=== PATIENT | male | born 1965 | race African-American/Black ===

== ENCOUNTER 2018-11-17 05:57 | Emergency (ER) | payer BC ==
[~2018-11-17] VITALS: Ht 182.9 cm; Wt 81.7 kg
[2018-11-17] MEDS ORDERED: METHOTREXATE2.5 MG PO ×2 (06:25→08:42)
[2018-11-17] MEDS ORDERED: PLAQUENIL200 MG PO ×2 (06:26→08:42)
[2018-11-17] MEDS ORDERED: FOLIC ACID1 MG PO ×2 (06:26→08:42)
[2018-11-17] MEDS ORDERED: NORCO 7.5-3251 EACH PO (08:42)
[2018-11-17] MEDS ORDERED: PREDNISONE20 MG PO (08:42)
== END 2018-11-17 08:57 | disposition home or self-care (01) ==
LOC: ED 05:57
DX: M06.9 Rheumatoid arthritis, unspecified (principal); F17.200 Nicotine dependence, unspecified, uncomplicated; Z79.899 Other long term (current) drug therapy
CPT/HCPCS: 80053; 85025; 96361; 96374; 96375; 99283-25; J1885; J2930; J7040

== ENCOUNTER 2018-12-19 15:15 | Emergency (ER) | payer BC ==
[~2018-12-19] VITALS: Ht 182.9 cm; Wt 82.5 kg
[~2018-12-19 15:15] MED LIST: FOLIC ACID1 MG PO; METHOTREXATE2.5 MG PO; NORCO 7.5-3251 EACH PO; PLAQUENIL200 MG PO; PREDNISONE20 MG PO
[2018-12-19] MEDS ORDERED: VENTOLIN HFA18 GM INH (16:31)
[2018-12-19] MEDS ORDERED: DOXYCYCLINE HY100 MG PO (16:31)
[2018-12-19] MEDS ORDERED: ROBITUSSIN COU237 M3 PO (16:31)
[2018-12-19] MEDS ORDERED: PREDNISONE20 MG PO (16:31)
== END 2018-12-19 16:48 | disposition home or self-care (01) ==
LOC: ED 15:15
DX: J20.9 Acute bronchitis, unspecified (principal); M06.9 Rheumatoid arthritis, unspecified; F17.200 Nicotine dependence, unspecified, uncomplicated; Z79.52 Long term (current) use of systemic steroids; Z79.899 Other long term (current) drug therapy
CPT/HCPCS: 71046; 87502; 94640; 99283-25; J7512

== ENCOUNTER 2019-03-11 05:16 | Emergency (ER) | payer BC ==
[~2019-03-11] VITALS: Ht 182.9 cm; Wt 82.5 kg
[~2019-03-11 05:16] MED LIST changes: +DOXYCYCLINE HY100 MG PO; +ROBITUSSIN COU237 M3 PO; +VENTOLIN HFA18 GM INH
== END 2019-03-11 06:00 | disposition home or self-care (01) ==
LOC: ED 05:16
DX: G89.29 Other chronic pain (principal); M06.9 Rheumatoid arthritis, unspecified; F17.200 Nicotine dependence, unspecified, uncomplicated; Z79.899 Other long term (current) drug therapy
CPT/HCPCS: 99283

== ENCOUNTER 2021-03-29 10:01 | Emergency (ER) | payer OTHER ==
[~2021-03-29] VITALS: Ht 182.9 cm; Wt 82.5 kg
[2021-03-29] MEDS ORDERED: MELOXICAM10 MG PO (10:47)
[2021-03-29] MEDS ORDERED: PREDNISONE20 MG PO (10:47)
[2021-03-29] MEDS ORDERED: HYDROCODON-ACE1 EA10 PO (10:50)
[2021-03-29] MEDS ORDERED: NAPROSYN500 MG PO (10:50)
== END 2021-03-29 11:08 | disposition home or self-care (01) ==
LOC: ED 10:01
DX: M75.91 Shoulder lesion, unspecified, right shoulder (principal); M19.90 Unspecified osteoarthritis, unspecified site; M06.9 Rheumatoid arthritis, unspecified; F17.200 Nicotine dependence, unspecified, uncomplicated; Z79.899 Other long term (current) drug therapy
CPT/HCPCS: 96372; 99283; J1885

== ENCOUNTER 2021-06-26 11:09 | Emergency (ER) | payer OTHER ==
[~2021-06-26] VITALS: Ht 182.9 cm; Wt 77.4 kg
[~2021-06-26 11:09] MED LIST changes: +HYDROCODON-ACE1 EA10 PO; +MELOXICAM10 MG PO; +NAPROSYN500 MG PO
[2021-06-26] MEDS ORDERED: PREDNISONE20 MG PO (17:14)
== END 2021-06-26 17:30 | disposition home or self-care (01) ==
LOC: ED 11:09
DX: S46.911A Strain of unspecified muscle, fascia and tendon at shoulder and upper arm level, right arm, initial encounter (principal); M19.90 Unspecified osteoarthritis, unspecified site; M06.9 Rheumatoid arthritis, unspecified; F17.200 Nicotine dependence, unspecified, uncomplicated; X50.0XXA Overexertion from strenuous movement or load, initial encounter; Z91.013 Allergy to seafood; Z79.899 Other long term (current) drug therapy
CPT/HCPCS: 99283

== ENCOUNTER 2021-09-26 06:37 | Emergency (ER) | payer OTHER ==
[~2021-09-26] VITALS: Ht 182.9 cm; Wt 77.0 kg
[2021-09-26] MEDS ORDERED: METHOTREXATE2.5 MG PO (06:53)
[2021-09-26] MEDS ORDERED: HYDROXYCHLOROQ200 MG PO (06:53)
--- NOTE | 2021-09-29 16:25 | EKG ---
[facility] [address] [facility] [place] [address] Signed Normal sinus rhythm Possible Left atrial enlargement Borderline ECG No previous ECGs available Confirmed by GREGOR ZELAYA DO ([id number]) on 09/29/2021 4:25:27 PM Electronically Signed By: GREGOR ZELAYA DO 09/29/21 1625 PATIENT NAME: CARLOS ENRIQUE DIAZ Electrocardiogram DATE OF : 61 PHYSICIAN: GREGOR ZELAYA DO REPORT #: [id number] REPORT IS CONFIDENTIAL AND NOT TO BE RELEASED WITHOUT AUTHORIZATION
== END 2021-09-26 10:40 | disposition home or self-care (01) ==
LOC: ED 06:37
DX: J44.9 Chronic obstructive pulmonary disease, unspecified (principal); G47.30 Sleep apnea, unspecified; M19.90 Unspecified osteoarthritis, unspecified site; M06.9 Rheumatoid arthritis, unspecified; F17.200 Nicotine dependence, unspecified, uncomplicated; Z91.013 Allergy to seafood; Z79.899 Other long term (current) drug therapy
CPT/HCPCS: 71045; 80048; 84484; 85025; 93005; 93010; 94640; 94664; 96374; 99285-25; 99406; J2405

== ENCOUNTER 2024-05-26 10:27 | Emergency (ER) | payer OTHER ==
[~2024-05-26] VITALS: Ht 182.9 cm; Wt 76.6 kg
[~2024-05-26 10:27] MED LIST changes: +CEPHALEXIN500 M1 PO; +HYDROXYCHLOROQ200 MG PO
--- OUTSIDE RECORDS SUMMARY | 2024-05-26 10:34 | XMS ---
PreManage Notification: CARLOS ENRIQUE DIAZ Security Ict Managers Events No recent Security Events currently on file CRITERIA MET - [facility] - 2 Visits in 30 Days CARE PROVIDERS -, [facility] Dentist: Metallography Teacher [facility] PHONE: [phone] -[place]- Dentist: Metallography Teacher [facility] PHONE: [phone] SOLOMON ORTIZ Internal Medicine Current PHONE: Unknown Ana has no Care Guidelines for this patient. [place] VISIT COUNT (12 MO.) 3 [facility] TOTAL 3 NOTE: Visits indicate total known visits. ED/UCC VISIT TRACKING (12 MO.) 05/26/2024 10:28 [facility] TYPE: Emergency COMPLAINT: - RIGHT LEG PAIN 05/01/2024 19:04 [facility] TYPE: Emergency COMPLAINT: - STITCH REMOVAL DIAGNOSES: - Allergy to seafood - Laceration without foreign body of right lesser toe(s) without damage to nail, subsequent encounter - Nicotine dependence, unspecified, uncomplicated - Other cause of strike by thrown, projected or falling object, initial encounter 04/18/2024 14:[address] [facility] [place] TYPE: Emergency COMPLAINT: - TOE INJURY DIAGNOSES: - Allergy to seafood - Displaced fracture of distal phalanx of right lesser toe(s), initial encounter for open fracture - Laceration without foreign body of right lesser toe(s) without damage to nail, initial encounter - Nicotine dependence, unspecified, uncomplicated - Other cause of strike by thrown, projected or falling object, initial encounter - Other computer terminal operator (current) drug therapy INPATIENT VISIT TRACKING (12 MO.) No inpatient visits to display in this time frame [email or web address]
[2024-05-26] MEDS ORDERED: MELOXICAM15 MG PO (11:22)
[2024-05-26 11:28] VITALS: BP 112/68
[2024-05-26] MEDS ORDERED: MELOXICAM 15 MG TAB PO ONE (11:30)
== END 2024-05-26 11:28 | disposition home or self-care (01) ==
LOC: ED 10:27
DX: M76.9 Unspecified enthesopathy, lower limb, excluding foot (principal); F17.200 Nicotine dependence, unspecified, uncomplicated; Z91.013 Allergy to seafood
CPT/HCPCS: 99283

== ENCOUNTER 2025-03-22 20:23 | Emergency (ER) | payer OTHER ==
[~2025-03-22] VITALS: Ht 182.9 cm; Wt 82.0 kg
[~2025-03-22 20:23] MED LIST changes: +MELOXICAM15 MG PO
[2025-03-22] MEDS ORDERED: HADLIMA(CF40 MG/0.1 SQ (21:08)
[2025-03-22] MEDS ORDERED: PREDNISONE10 MG PO (21:08)
[2025-03-22] MEDS ORDERED: FOLIC ACID1 MG PO (21:08)
[2025-03-22 21:16] LABS: BASOPHILS 0.3 % (0.2-1.2); EOSINOPHILS 0.1 % (0.8-7.0); LYMPHOCYTES 5.4 % (21.8-53.1); MCH 32.0 PG (25.7-32.2); MCHC 33.7 g/dL (32.3-36.5); MCV 95.0 fL (79.0-92.2); MONOCYTES 10.7 % (5.3-12.2); NEUTROPHILS 83.2 % (34.0-67.9); RBC 4.41 M/uL (4.63-6.08)
[2025-03-22] MEDS ORDERED: ACETAMINOPHEN 500 MG TAB PO ONE (21:30)
[2025-03-22] MEDS ORDERED: SODIUM CHLORIDE 0.9% 1,000 ML IV PRN (21:30)
[2025-03-22 21:32] LABS: ALT (SGPT) 14.0 U/L (14-59); AST (SGOT) 12.0 U/L (15-37); GLOMERULAR FILTRATION RATE,EST 57.0 mL/min (>60); PROTEIN, TOTAL 8.6 g/dL (6.4-8.2); UREA NITROGEN 19.0 mg/dL (7-18)
[2025-03-22 21:37] LABS: LACTIC ACID, BLOOD 0.8 mmol/L (0.4-2.0)
[2025-03-22] MEDS ORDERED: ALBUTEROL/IPRATROPIUM 3 ML NEB INH ONE (22:15)
[2025-03-22 22:47] LABS: CORONAVIRUS COVID-19 AG NEGATIVE (NEGATIVE)
[2025-03-22 22:54] LABS: BLOOD/HGB, URINE NEGATIVE (Negative); KETONE, URINE SMALL (Negative); LEUK ESTERASE, URINE NEGATIVE (negative); NITRITE, URINE NEGATIVE (negative)
[2025-03-22 23:00] LABS: BACTERIA, URINE RARE /hpf (negative); CASTS, URINE NONE SEEN \\lpf; CRYSTALS, URINE NONE SEEN (0-1+); EPITHELIAL CELLS, URINE SQUAMOUS 1+ /lpf (0-1+)
[2025-03-22 23:01] LABS: REFLEX CULTURE, URINE No (No)
[2025-03-22] MEDS ORDERED: AMOX TR-K CLV1 EAC1 PO (23:28)
[2025-03-22] MEDS ORDERED: PREDNISONE20 MG PO (23:28)
[2025-03-22] MEDS ORDERED: ALBUTEROL SULFATE 8 GM HOME.PACK INH ONE (23:30)
[2025-03-22 23:57] VITALS: BP 114/69
== END 2025-03-23 | disposition home or self-care (01) ==
LOC: ED 20:23
PROVIDERS: Internal Medicine
DX: J44.0 Chronic obstructive pulmonary disease with (acute) lower respiratory infection (principal); J18.9 Pneumonia, unspecified organism; J44.1 Chronic obstructive pulmonary disease with (acute) exacerbation; M19.90 Unspecified osteoarthritis, unspecified site; F17.200 Nicotine dependence, unspecified, uncomplicated; Z79.52 Long term (current) use of systemic steroids; Z79.899 Other long term (current) drug therapy; Z91.013 Allergy to seafood
CPT/HCPCS: 36415; 71045; 80053; 81001; 83605; 85025; 87040; 94640; 94664; 94667; 96365; 99283-25; 99406; A9270; J0696; J7030

== ENCOUNTER 2025-04-26 15:01 | Emergency (ER) | payer OTHER ==
[~2025-04-26] VITALS: Ht 182.9 cm; Wt 81.0 kg
[~2025-04-26 15:01] MED LIST changes: +AMOX TR-K CLV1 EAC1 PO; +HADLIMA(CF40 MG/0.1 SQ; +PREDNISONE10 MG PO
[2025-04-26 15:35] VITALS: BP 137/84
== END 2025-04-26 15:35 | disposition home or self-care (01) ==
LOC: ED 15:01
DX: T23.271A Burn of second degree of right wrist, initial encounter (principal); M06.9 Rheumatoid arthritis, unspecified; F17.200 Nicotine dependence, unspecified, uncomplicated; Z91.013 Allergy to seafood; Z79.52 Long term (current) use of systemic steroids; Z79.899 Other long term (current) drug therapy; X11.8XXA Contact with other hot tap-water, initial encounter
CPT/HCPCS: 16020; 99283

== ENCOUNTER 2025-06-05 17:26 | Emergency (ER) | payer OTHER ==
[~2025-06-05] VITALS: Ht 182.9 cm; Wt 80.0 kg
[2025-06-05] MEDS ORDERED: MELOXICAM15 MG PO (18:04)
[2025-06-05 19:00] VITALS: BP 135/71
== END 2025-06-05 19:00 | disposition home or self-care (01) ==
LOC: ED 17:26
DX: S60.122A Contusion of left index finger with damage to nail, initial encounter (principal); M19.90 Unspecified osteoarthritis, unspecified site; Z79.899 Other long term (current) drug therapy; F17.200 Nicotine dependence, unspecified, uncomplicated; Z91.013 Allergy to seafood; W23.1XXA Caught, crushed, jammed, or pinched between stationary objects, initial encounter
CPT/HCPCS: 73140; 99283